=== PATIENT | female | born 1985 | race Two or more races ===

== ENCOUNTER 2024-08-20 08:50 | Emergency (ER) | payer MEDICAID, OTHER ==
[~2024-08-20] VITALS: Ht 167.6 cm; Wt 102.9 kg
[2024-08-20 09:29] VITALS: BP 131/56; PULSE 77; RESP 21; TEMP 98.9; O2SAT 98
[2024-08-20 10:08] LABS: Basophils # (auto) 0.1 10 ^3/uL (0-0.2); Basophils % (auto) 0.6 % (0.0-2.0); Eosinophils # (auto) 0 10 ^3/uL (0-0.8); Eosinophils % (auto) 0.4 % (0.0-7.0); Hematocrit 32.7 % (36.0-46.0); Hemoglobin 10.9 g/dL (12.2-16.2); Lymphocytes # (auto) 2.1 10 ^3/uL (0.4-5.4); Lymphocytes % (auto) 23.8 % (10.0-50.0); Mean Corpuscular Hemoglobin 25.6 pg (28.0-32.0); Mean Corpuscular Hgb Conc. 33.2 g/dL (32.0-36.0); Mean Corpuscular Volume 77.1 fL (80.0-100.0); Monocytes # (auto) 0.6 10 ^3/uL (0-1.3); Monocytes % (auto) 6.9 % (0.0-12.0); Neutrophils % (auto) 68.3 % (37.0-80.0); Platelet Count (auto) 280 10^3/uL (140-450); Red Blood Cells 4.24 10^6/uL (4.0-5.20); Red Cell Distribution Width 16.7 % (11.8-14.3); White Blood Cell 8.7 10^3/uL (4.4-10.8)
[2024-08-20 10:16] LABS: Chloride 106 mmol/L (98-107); Sodium 140 mmol/L (136-145)
[2024-08-20 10:17] LABS: Anion Gap 7 (5-15); Calcium 9.4 mg/dL (8.7-10.4); Carbon Dioxide 27 mmol/L (20-31)
[2024-08-20 10:18] LABS: Potassium 3.4 mmol/L (3.5-5.1)
[2024-08-20 10:23] LABS: BUN/Creatinine Ratio 14.3 (10.0-20.0); Blood Urea Nitrogen 10 mg/dL (9-23); Glucose 112 mg/dL (74-106)
[2024-08-20] MEDS ORDERED: HYD25RS PR (10:53)
[2024-08-20] MEDS ORDERED: DIBU1OIN11 RE (10:53)
--- NOTE | 2024-08-20 10:53 | ED.PDOC ---
General HPI Comments 39 year old with hx of hemorrhoids since she was 16 presents with a chief complaint of painful hemorrhoids that started three days ago. No trauma no injury. Symptoms are aggravated with sitting. 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 Family History Family History: Reviewed,noncontributory to illness Social History Smoker: Non-Smoker Alcohol: Denies ETOH Use Drugs: Denies Drug Use All Other Systems: Reviewed and Negative (Per HPI) Physical Exam General Appearance: No Apparent Distress, Normal HEENT: Normal ENT Inspection, Pharynx Normal, TMs Normal Neck: Full Range of Motion, Non-Tender, Normal, Normal Inspection Respiratory: Chest Non-Tender, Lungs Clear, No Accessory Muscle Use, No Respiratory Distress, Normal Breath Sounds Cardiovascular: No Edema, No JVD, No Murmur, No Gallop, Normal Peripheral Pulses, Regular Rate/Rhythm Breast Exam: Deferred Gastrointestinal: No Organomegaly, Non Tender, No Pulsatile Mass, Normal Bowel Sounds, Soft Genitalia: Deferred Pelvic: Deferred Rectal: Heme negative stool, Hemorrhoids, Normal rectal tone, Tenderness, Other (Miriam MALAVE in the room as a pricing coordinator) Extremities: No calf tenderness, Normal capillary refill, Normal inspection, Normal range of motion, Non-tender, No pedal edema Musculoskeletal : Apperance: Normal Neurologic: Alert, rn critical care II-XII nml as Tested, No Motor Deficits, Normal Affect, Normal Mood, No Sensory Deficits Cerebellar Function: Normal Reflexes: Normal Skin: Dry, Normal Color, Warm Lymphatic: No Adenopathy Was a procedure done? Was a procedure done?: No Differential Diagnosis Kidney stone (Female): Other X-Ray, Labs, Meds, VS Vital Signs Date Time Temp Pulse Resp B/P (MAP) Pulse Ox O2 Delivery O2 Flow Rate FiO2 08/20/24 09:29 98.9 77 21 131/56 (81) 98 98.9 08/20/24 09:29 77 21 98 Room Air 08/20/24 09:07 98.9 77 21 131/56 (81) 98 98.9 Lab Test 08/20/24 09:52 Range/Units White Blood Count 8.7 4.4-10.8 10^3/uL Red Blood Count 4.24 4.0-5.20 10^6/uL Hemoglobin 10.9 L 12.2-16.2 g/dL Hematocrit 32.7 L 36.0-46.0 % Mean Corpuscular Volume 77.1 L 80.0-100.0 fL Mean Corpuscular Hemoglobin 25.6 L 28.0-32.0 pg Mean Corpuscular Hemoglobin Concent 33.2 32.0-36.0 g/dL Red Cell Distribution Width 16.7 H 11.8-14.3 % Platelet Count 280 140-450 10^3/uL Mean Platelet Volume 7.4 6.9-10.8 fL Neutrophils (%) (Auto) 68.3 37.0-80.0 % Lymphocytes (%) (Auto) 23.8 10.0-50.0 % Monocytes (%) (Auto) 6.9 0.0-12.0 % Eosinophils (%) (Auto) 0.4 0.0-7.0 % Basophils (%) (Auto) 0.6 0.0-2.0 % Neutrophils # (Auto) 6.0 1.6-8.6 10 ^3/uL Lymphocytes # (Auto) 2.1 0.4-5.4 10 ^3/uL Monocytes # (Auto) 0.6 0-1.3 10 ^3/uL Eosinophils # (Auto) 0 0-0.8 10 ^3/uL Basophils # (Auto) 0.1 0-0.2 10 ^3/uL Nucleated Red Blood Cells 0.0 % Sodium Level 140 136-145 mmol/L Potassium Level 3.4 L 3.5-5.1 mmol/L Chloride Level 106 98-107 mmol/L Carbon Dioxide Level 27 20-31 mmol/L Anion Gap 7 5-15 Blood Urea Nitrogen 10 9-23 mg/dL Creatinine 0.70 0.550-1.02 mg/dL Glomerular Filtration Rate Calc 113 >90 mL/min BUN/Creatinine Ratio 14.3 10.0-20.0 Serum Glucose 112 H 74-106 mg/dL Calcium Level 9.4 8.7-10.4 mg/dL X-Ray, Labs, Meds, VS Comment After ROS physical examination no red flags. Findings consistent with external hemorrhoids. No signs of fistula abscess rectal bleeding or serious pathology Based on show decision-making patient will try suppositories and topical medication for pain Increase fiber in her diet. Avoid from straining. Will follow up with PCP. Patient is stable for discharge at this time. External notes reviewed. Test results and diagnostic imaging interpreted. All diagnostic findings, discharge care, education and instructions provided Follow-up with PCP in 2 to 3 days Patient verbalized understanding and agreed to treatment plan Vital signs stable, afebrile, no acute distress noted Patient ambulatory with strong steady gait Advised to return precautions for any new or worsening symptoms, return to ER immediately for re-evaluation Patient is aware that the purpose of this visit was for an acute medical emergency requiring emergent stabilization. Chronic conditions, including malignancies have not been ruled out. Patient is instructed to follow up with PCP as directed and discharge instructions for continued care and workup. If unable to arrange follow-up, patient is to return to the emergency department for reassessment. Patient (parent or legal guardian if applicable) was given verbal and written discharge instructions and acknowledges understanding. Time of 1ST Reevaluation: 10:35 Reevaluation 1ST: Improved Patient Education/Counseling: Diagnosis, Treatment Family Education/Counseling: Diagnosis, Treatment Departure 1 Departure Time of Disposition: 10:39 Impression: Primary Impression: External hemorrhoid Disposition: HOME / SELF CARE / HOMELESS Condition: Fair e-Prescriptions Dibucaine (Dibucaine) 1 % Oin 1 APPLIC RE TID for 10 Days, #30 OIN 0 Refills Prov: JOSE BRYSON NP 08/20/24 Hydrocortisone Acetate (ANUCORT-HC SUPPOSITORY) 25 Mg Lantigua 25 MG [place] BID for 5 Days, #10 SUPP 0 Refills Prov: JOSE BRYSON NP 08/20/24 Critical Care Note Critical Care Time?: No Stability Stability form required: No Heart Score Heart Score: Heart Score Response (Comments) Value History N/A 0 EKG N/A 0 Age N/A 0 Risk Factors N/A 0 Troponin N/A 0 Total 0 JOSE BRYSON NP Aug 20, 2024 10:53
== END 2024-08-20 11:23 | disposition home or self-care (01) ==
LOC: ER 08:50
DX: K64.4 Residual hemorrhoidal skin tags (principal)
CPT/HCPCS: 36415; 80048; 85025

== ENCOUNTER 2024-11-03 21:30 | Emergency (ER) | payer SELFPAY ==
[~2024-11-03] VITALS: Ht 167.6 cm; Wt 104.0 kg
[~2024-11-03 21:30] MED LIST: DIBU1OIN11 RE; HYD25RS PR
[2024-11-03 22:25] LABS: Urine Amorphous Crystal FEW /hpf (None Seen); Urine Protein, UAD 1+ (Negative)
[2024-11-03 22:34] LABS: Hematocrit 37.7 % (36.0-46.0); Hemoglobin 12.2 g/dL (12.2-16.2); Mean Corpuscular Hemoglobin 24.6 pg (28.0-32.0); Mean Corpuscular Volume 76.2 fL (80.0-100.0); Nucleated Red Blood Cells % 0.0 %
[2024-11-03 22:53] LABS: Alanine Aminotransferase 23 U/L (7-40); Anion Gap 12 (5-15); BUN/Creatinine Ratio 21.3 (10.0-20.0); Blood Urea Nitrogen 17 mg/dL (9-23); Calcium 9.3 mg/dL (8.7-10.4); Carbon Dioxide 27 mmol/L (20-31); Chloride 103 mmol/L (98-107); Lipase 26 U/L (12-53); Sodium 142 mmol/L (136-145); Total Protein 8.0 g/dL (5.7-8.2)
[2024-11-03 22:54] LABS: Albumin 5.2 g/dL (3.2-4.8); Alkaline Phosphatase 116 U/L (46-116); Bilirubin, Total 0.7 mg/dL (0.2-1.0); Glucose 121 mg/dL (74-106); Potassium 3.0 mmol/L (3.5-5.1)
--- NOTE | 2024-11-03 23:24 | ED.PDOC ---
History of Present Illness HPI Comments 39 y/o F presents with c/c of abdominal and chest wall pain, nausea, and vomiting. Patient endorses on onset of symptoms following excessive alcohol binge 2x nights ago on 11/01/24. No improvement or relief with Zofran or NyQuil medication use. No significant medical, surgical, family, or social history endorsed alongside any recent travel, injuries, sick contact, or spoiled food consumption. Patient denies any bloody or bilious vomitus, diarrhea, urinary symptoms, fever, chills, shortness of breath, or further associated symptoms. Chief Complaint: Nausea/Vomiting Time Seen by MD: 22:10 Primary Care Provider: amy Trevino Notes: Nurses Notes, Medications, Allergies Allergies: Coded Allergies: NO KNOWN ALLERGIES (Unverified , 08/20/24) Home Meds Active Scripts Potassium Chloride (POTASSIUM CHLORIDE CR) 10 Meq Tb, 1 TAB PO DAILY for 7 Days, #7 TAB 5 Refills Prov:BRENDA THAPA MD 11/03/24 Ondansetron Odt 4MG Tab (ZOFRAN PO) 4 Mg Tb, 4 MG PO QIDPRN for 3 Days, #12 TAB ODT TAB-DISSOLVE IN MOUTH, THEN SWALLOW Prov:BRENDA THAPA MD 11/03/24 Famotidine (Pepcid AC) 20 Mg Tab, 20 MG PO BID for 5 Days, #10 TAB Prov:BRENDA THAPA MD 11/03/24 Dibucaine (Dibucaine) 1 % Oin, 1 APPLIC RE TID for 10 Days, #30 OIN 0 Refills Prov:JOSE BRYSON NP 08/20/24 Hydrocortisone Acetate (ANUCORT-HC SUPPOSITORY) 25 Mg Lantigua, 25 MG [place] BID for 5 Days, #10 SUPP 0 Refills Prov:JOSE BRYSON NP 08/20/24 Information Source: Patient Mode of Arrival: Ambulatory Severity: Moderate Timing: Hours Duration: Since onset Prehospital treatment: Treatment (Zofran and NyQuil) Review of Systems: REVIEW OF SYSTEMS: No fever, no chills, or fatigue HEENT: No sore throat, no earache, no congestion, no neck pain. Cardiac: Chest wall pain. No palpitations. Lungs: No shortness of breath, no cough. GI: Abdominal pain, nausea, vomiting, no diarrhea, no constipation : No dysuria, frequency, or urgency. No hematuria. Musculoskeletal: No joint pain , no joint swelling, no extremity edema. Skin: No rash, no itching. Neuro: No headache, no dizziness, no weakness Vital Signs Vital Signs Date Time Temp Pulse Resp B/P (MAP) Pulse Ox O2 Delivery O2 Flow Rate FiO2 11/04/24 01:36 58 12 99 Room Air* 0 21 11/04/24 01:34 97.5 166/94 (118) 97.5 Physical Exam General: Awake, alert and oriented. No acute distress. Skin: Skin in warm, dry and intact. Appropriate color for ethnicity. HEENT: The head is normocephalic and atraumatic. Conjunctivae are clear without exudates or hemorrhage. Sclera is non-icteric. EOM are intact. No signs of nystagmus. Eyelids are normal in appearance without swelling or lesions. Oral mucosa is pink and moist Neck: The neck is supple with normal range of motion. No JVD. Cardiac: Heart rate and rhythm are normal. No murmurs, gallops, or rubs are auscultated. Respiratory: No signs of respiratory distress. Lung sounds are clear in all lobes bilaterally without rales, rhonchi, or wheezes. Abdominal: Epigastric and right upper quadrant tenderness. Otherwise, remaining abdomen is soft, non-tender without distention, guarding or rigidity. Bowel sounds are present and normoactive in all four quadrants. Extremities: Upper and lower extremities are atraumatic in appearance without deformity or edema. Neurological: The patient is awake, alert and oriented to person, place, and time with normal speech. Speech is clear. There is no facial asymmetry. Psychiatric: Appropriate mood and affect. Good judgement and insight. 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 Was a procedure done?: No Differential Dx Considerations may include: Differential diagnoses considered include: Abdominal aortic aneurysm, NH, esopha geal rupture, intestinal obstruction, mesenteric ischemia, perforated viscus or solid organ rupture, CHF with hepatomegaly, pneumonia, abscess, appendicitis, biliary disease, diverticulitis, gastritis, gastroenteritis, hepatitis, hernia, inflammatory bowel disease, pancreatitis, peptic ulcer disease, urinary tract infection, ureteral colic, constipation, GERD, irritable syndrome, abdominal wall pain, nonspecific abdominal pain, herpes zoster, nephrolithiasis. [ ]Also ruptured ectopic , ovarian torsion/cyst, tubo-ovarian abscess, PID, endometriosis, mittelschmerz. X-Ray, Labs, Meds, VS Vital Signs Date Time Temp Pulse Resp B/P (MAP) Pulse Ox O2 Delivery O2 Flow Rate FiO2 11/04/24 01:36 58 12 99 Room Air* 0 21 11/04/24 01:34 97.5 58 12 166/94 (118) 99 97.5 11/03/24 21:40 98.1 83 18 124/103 (110) 98 98.1 Lab Test 11/03/24 22:15 11/03/24 21:30 Range/Units White Blood Count 14.2 H 4.4-10.8 10^3/uL Red Blood Count 4.95 4.0-5.20 10^6/uL Hemoglobin 12.2 12.2-16.2 g/dL Hematocrit 37.7 36.0-46.0 % Mean Corpuscular Volume 76.2 L 80.0-100.0 fL Mean Corpuscular Hemoglobin 24.6 L 28.0-32.0 pg Mean Corpuscular Hemoglobin Concent 32.3 32.0-36.0 g/dL Red Cell Distribution Width 16.6 H 11.8-14.3 % Platelet Count 404 140-450 10^3/uL Mean Platelet Volume 7.6 6.9-10.8 fL Neutrophils (%) (Auto) 83.8 H 37.0-80.0 % Lymphocytes (%) (Auto) 11.1 10.0-50.0 % Monocytes (%) (Auto) 4.8 0.0-12.0 % Eosinophils (%) (Auto) 0.0 0.0-7.0 % Basophils (%) (Auto) 0.3 0.0-2.0 % Neutrophils # (Auto) 11.9 H 1.6-8.6 10 ^3/uL Lymphocytes # (Auto) 1.6 0.4-5.4 10 ^3/uL Monocytes # (Auto) 0.7 0-1.3 10 ^3/uL Eosinophils # (Auto) 0 0-0.8 10 ^3/uL Basophils # (Auto) 0 0-0.2 10 ^3/uL Nucleated Red Blood Cells 0.0 % Sodium Level 142 136-145 mmol/L Potassium Level 3.0 L 3.5-5.1 mmol/L Chloride Level 103 98-107 mmol/L Carbon Dioxide Level 27 20-31 mmol/L Anion Gap 12 5-15 Blood Urea Nitrogen 17 9-23 mg/dL Creatinine 0.80 0.550-1.02 mg/dL Glomerular Filtration Rate Calc 96 >90 mL/min BUN/Creatinine Ratio 21.3 H 10.0-20.0 Serum Glucose 121 H 74-106 mg/dL Lactic Acid Level 0.9 0.4-2.0 mmol/L Calcium Level 9.3 8.7-10.4 mg/dL Total Bilirubin 0.7 0.2-1.0 mg/dL Aspartate Amino Transferase (AST) 27 13-40 U/L Alanine Aminotransferase (ALT) 23 7-40 U/L Alkaline Phosphatase 116 46-116 U/L Total Protein 8.0 5.7-8.2 g/dL Albumin 5.2 H 3.2-4.8 g/dL Lipase 26 12-53 U/L Urine Color Light-orange Yellow Urine Clarity Ex.turbid Clear Urine pH 6.0 5.0-9.0 Urine Specific [place] 1.038 H 1.001-1.035 Urine Protein 1+ H Negative Urine Ketones 3+ H Negative Urine Blood Trace H Negative /uL Urine Nitrite Negative Negative Urine Bilirubin Negative Negative Urine Urobilinogen Normal Negative mg/dL Urine Leukocyte Esterase 1+ Negative /uL Urine RBC 14 0 - 4 /hpf Urine Microscopic WBC 23 H 0-5 /HPF Urine Squamous Epithelial Cells Many <5 /hpf Urine Amorphous Crystals Few None Seen /hpf Urine Bacteria Few H None Seen /hpf Urine Mucus Moderate None Seen Urine Glucose Normal Normal mg/dL Current Medications Medications (Trade) Dose Ordered Sig/Travis Route Start Time Stop Time Status Last Admin Al Hydrox/Mg Hydrox/Simethicone (Maalox Plus) 30 ml ONCE ONCE PO 11/03/24 22:15 11/03/24 22:16 DC 11/04/24 01:38 Lidocaine HCl (Xylocaine 2% Viscous) 10 ml ONCE ONCE PO 11/03/24 22:15 11/03/24 22:16 DC 11/04/24 01:38 Sodium Chloride 1,000 ml @ 1,000 mls/hr Q1H ONCE IV 11/03/24 22:15 11/03/24 23:14 DC 11/04/24 01:37 Metoclopramide HCl (Reglan Injection) 10 mg ONCE ONCE IV 11/03/24 22:15 11/03/24 22:16 DC 11/04/24 01:37 Potassium Bicarbonate (Klor-Con/Ef) 50 meq ONCE ONCE PO 11/03/24 23:30 11/03/24 23:31 DC 11/04/24 01:38 Time of 1ST Reevaluation: 22:40 Reevaluation 1ST: Unchanged Patient Education/Counseling: Treatment, Need For Follow Up Family Education/Counseling: No Family Present SEPSIS Sepsis Screen Date sepsis recognized/suspect: Nov 03, 2024 Time Sepsis recognized/suspect: 2139 Recent Procedure: No On Antibiotic Therapy: No Respiratory Rate >20: No Heart Rate >90: No Temp<36 C (96.8 F) or >38.3 C: No SBP <90 or MAP <65 mmHG: No New Acute Mental Status Change: No Is the patient on CPAP, BIPAP,: No Physician Orders Po Trial (11/03/24 ) Vital Signs Date Time Temp Pulse Resp B/P (MAP) Pulse Ox O2 Delivery O2 Flow Rate FiO2 11/04/24 01:36 58 12 99 Room Air* 0 21 11/04/24 01:34 97.5 58 12 166/94 (118) 99 97.5 11/03/24 21:40 98.1 83 18 124/103 (110) 98 98.1 Laboratory Tests Test 11/03/24 22:15 Lactic Acid Level 0.9 mmol/L (0.4-2.0) White Blood Count 14.2 10^3/uL (4.4-10.8) H Medications Medications Dose Ordered Sig/Travis Route Start Time Stop Time Status Last Admin Dose Admin Al Hydrox/Mg Hydrox/Simethicone 30 ml ONCE ONCE PO 11/03/24 22:15 11/03/24 22:16 DC 11/04/24 01:38 Lidocaine HCl 10 ml ONCE ONCE PO 11/03/24 22:15 11/03/24 22:16 DC 11/04/24 01:38 Metoclopramide HCl 10 mg ONCE ONCE IV 11/03/24 22:15 11/03/24 22:16 DC 11/04/24 01:37 Potassium Bicarbonate 50 meq ONCE ONCE PO 11/03/24 23:30 11/03/24 23:31 DC 11/04/24 01:38 Sodium Chloride 1,000 ml @ 1,000 mls/hr Q1H ONCE IV 11/03/24 22:15 11/03/24 23:14 DC 11/04/24 01:37 Departure 1 Departure Time of Disposition: 23:32 Impression: Primary Impression: Nausea and vomiting Additional Impressions: Abdominal pain Hypokalemia Disposition: HOME / SELF CARE / HOMELESS Condition: Stable Additional Instructions: ED DISCHARGE INSTRUCTIONS INSTRUCTIONS: PLEASE READ ALL INSTRUCTIONS PROVIDED IN THIS PACKET CAREFULLY. ALTHOUGH YOU HAVE BEEN DISCHARGED FROM THE EMERGENCY DEPARTMENT, THIS DOES NOT MEAN THAT YOU HAVE A "CLEAN BILL OF HEALTH". NO DEFINITIVE DIAGNOSIS FOR YOUR SYMPTOMS HAS BEEN MADE TODAY. IT IS POSSIBLE THAT YOU ARE IN THE PROCESS OF DEVELOPING A SERIOUS ILLNESS. THIS IS WHY YOU MUST RETURN TO THE ED WITHOUT FAIL IF ANY NEW OR WORSENING SYMPTOMS (ESPECIALLY IF YOUR SYMPTOMS INCLUDE CHEST PAIN, TROUBLE BREATHING, ABDOMINAL PAIN, FEVER, HEADACHE, CONFUSION, TROUBLE SEEING, OR TROUBLE WALKING) IT IS ALSO VERY IMPORTANT THAT YOU SEE A PRIMARY CARE DOCTOR WITHIN THE NEXT 1-3 DAYS TO FOLLOW UP. IF YOU ARE UNABLE TO GET AN APPOINTMENT, RETURN TO THE ED FOR RE-EVALUATION. ABDOMINAL PAIN: CARE INSTRUCTIONS OVERVIEW ABDOMINAL PAIN HAS MANY POSSIBLE CAUSES. SOME AREN'T SERIOUS AND GET BETTER ON THEIR OWN IN A FEW DAYS. OTHERS NEED MORE TESTING AND TREATMENT. IF YOUR PAIN CONTINUES OR GETS WORSE, YOU NEED TO BE RECHECKED AND MAY NEED MORE TESTS TO FIND OUT WHAT IS WRONG. YOU MAY NEED SURGERY TO CORRECT THE PROBLEM. DON'T IGNORE NEW SYMPTOMS, SUCH FEVER, NAUSEA AND VOMITING, URINATION PROBLEMS, PAIN THAT GETS WORSE, AND DIZZINESS. THESE MAY BE SIGNS OF A MORE SERIOUS PROBLEM. IF YOU ARE NOT GETTING BETTER, YOU MAY NEED MORE TESTS OR TREATMENT. THE DOCTOR HAS CHECKED YOU CAREFULLY, BUT PROBLEMS CAN DEVELOP LATER. IF YOU NOTICE ANY PROBLEMS OR NEW SYMPTOMS, GET MEDICAL TREATMENT RIGHT AWAY. FOLLOW-UP CARE IS A MANCERA PART OF YOUR TREATMENT AND SAFETY. BE SURE TO MAKE AND GO TO ALL APPOINTMENTS, AND CALL YOUR DOCTOR IF YOU ARE HAVING PROBLEMS. IT'S ALSO A GOOD IDEA TO KNOW YOUR TEST RESULTS AND KEEP A LIST OF THE MEDICINES YOU TAKE. HOW CAN YOU CARE FOR YOURSELF AT HOME? REST UNTIL YOU FEEL BETTER. TO PREVENT DEHYDRATION, DRINK PLENTY OF FLUIDS. CHOOSE WATER AND OTHER CLEAR LIQUIDS UNTIL YOU FEEL BETTER. IF YOU HAVE KIDNEY, HEART, OR LIVER DISEASE AND HAVE TO LIMIT FLUIDS, TALK WITH YOUR DOCTOR BEFORE YOU INCREASE THE AMOUNT OF FLUIDS YOU DRINK. WHEN YOU FEEL LIKE EATING, START WITH SMALL AMOUNTS. DO NOT HAVE ALCOHOL, CAFFEINE, OR SPICY, HOT, OR HIGH-FAT FOODS FOR A DAY OR TWO. AVOID ANTI-INFLAMMATORY MEDICINES SUCH ASPIRIN, IBUPROFEN (ADVIL, MOTRIN), AND NAPROXEN (ALEVE). THESE CAN CAUSE STOMACH UPSET. TALK TO YOUR DOCTOR IF YOU TAKE DAILY ASPIRIN FOR ANOTHER HEALTH PROBLEM. WHEN SHOULD YOU CALL FOR HELP? CALL 911 ANYTIME YOU THINK YOU MAY NEED EMERGENCY CARE. FOR EXAMPLE, CALL IF: YOU PASSED OUT (LOST CONSCIOUSNESS). YOU PASS [place] OR VERY BLOODY STOOLS. YOU VOMIT BLOOD OR WHAT LOOKS LIKE COFFEE GROUNDS. YOU HAVE SEVERE BELLY PAIN. CALL YOUR DOCTOR NOW OR SEEK IMMEDIATE MEDICAL CARE IF: YOUR PAIN GETS WORSE, ESPECIALLY IF IT BECOMES FOCUSED IN ONE AREA OF YOUR BELLY. YOU HAVE A NEW OR HIGHER FEVER. YOUR STOOLS ARE BLACK AND LOOK LIKE TAR, OR THEY HAVE STREAKS OF BLOOD. YOU HAVE UNEXPECTED VAGINAL BLEEDING. YOU HAVE SYMPTOMS OF A URINARY TRACT INFECTION. THESE MAY INCLUDE: PAIN WHEN YOU URINATE. URINATING MORE OFTEN THAN USUAL. BLOOD IN YOUR URINE. YOU ARE DIZZY OR LIGHTHEADED, OR YOU FEEL LIKE YOU MAY FAINT. WATCH CLOSELY FOR CHANGES IN YOUR HEALTH, AND BE SURE TO CONTACT YOUR DOCTOR IF: YOU ARE NOT GETTING BETTER EXPECTED. CREDITS FOR ABDOMINAL PAIN: CARE INSTRUCTIONS CURRENT OF: FEBRUARY 16, 2023 AUTHOR: [employer] STAFF CLINICAL REVIEW BOARD ALL [facility] EDUCATION IS REVIEWED BY A TEAM THAT INCLUDES PHYSICIANS, NURSES, ADVANCED PRACTITIONERS, REGISTERED DIETICIANS, AND OTHER HEALTHCARE PROFESSIONALS. e-Prescriptions Potassium Chloride (POTASSIUM CHLORIDE CR) 10 Meq Tb 1 TAB PO DAILY for 7 Days, #7 TAB 5 Refills Prov: BRENDA THAPA MD 11/03/24 Ondansetron Odt 4MG Tab (ZOFRAN PO) 4 Mg Tb 4 MG PO QIDPRN for 3 Days, #12 TAB ODT TAB-DISSOLVE IN MOUTH, THEN SWALLOW Prov: BRENDA THAPA MD 11/03/24 Famotidine (Pepcid AC) 20 Mg Tab 20 MG PO BID for 5 Days, #10 TAB Prov: BRENDA THAPA MD 11/03/24 Comments 39-YEAR-OLD FEMALE PRESENTED WITH ABDOMINAL PAIN, NAUSEA AND VOMITING AFTER HEA VY ALCOHOL USE. NO PERITONEAL SIGNS ON ABDOMINAL EXAM. NO EVIDENCE OF ACUTE ABDOMEN AT THIS TIME. PATIENT IS WELL APPEARING. LABS SHOW MILD LEUKOCYTOSIS AND ELEVATION OF LFTS. POTASSIUM REPLACED IN THE ED AND PATIENT DISCHARGED WITH SCRIPT FOR FURTHER POTASSIUM SUPPLEMENTATION. IMAGING ON WARRANTED AT THIS TIME. PATIENT IS AFEBRILE. PATIENT IS NOT HYPOTENSIVE. LOW SUSPICION FOR ACUTE HEPATOBILIARY DISEASE (INCLUDING ACUTE CHOLECYSTITIS, ACUTE PANCREATITIS, PUD (INCLUDING PERFORATION), ACUTE INFECTIOUS PROCESS (PNEUMONIA, HEPATITIS, PYELONEPHRITIS), ACUTE APPENDICITIS, VASCULAR CATASTROPHE, BOWEL OBSTRUCTIONS, VISCOUS PERFORATION. PRESENTATION NOT CONSISTENT WITH OTHER ACUTE, EMERGENT CAUSES OF ABDOMINAL PAIN AT THIS TIME. Extensive evaluation was performed in attempt to identify or rule out: (See differential diagnosis section) The following tests were ordered, and results were reviewed by me and discussed with patient: (See diagnostic results section) The following test were independently interpreted by me: N/A I reviewed and agreed with the following test results read by other providers: N/A I reviewed the following notes from the pt's past medical encounters: August 20, 2024 encounter for external hemorrhoid Decision regarding hospitalization or escalation of hospital level of care: Risks and benefits of admission for further treatment of patient's condition was considered however due to patient's stable condition patient will be discharged to follow up closely or return to care for worsening of condition or inability to follow up. Critical Care Note Critical Care Time?: No Stability Stability form required: No Heart Score Heart Score: Heart Score Response (Comments) Value History N/A 0 EKG N/A 0 Age N/A 0 Risk Factors N/A 0 Troponin N/A 0 Total 0 I personally scribed for BRENDA THAPA MD ([email or web address]) on 11/03/24 at 23:24. Electronically submitted by Mikhail Ring ([email or web address]). BRENDA THAPA MD Nov 03, 2024 23:24
[2024-11-03] MEDS ORDERED: FAMO-161 PO (23:33)
[2024-11-03] MEDS ORDERED: ZOFR4T PO (23:33)
[2024-11-03] MEDS ORDERED: POTA-36 PO (23:34)
[2024-11-04 01:34] VITALS: BP 166/94; TEMP 97.5
[2024-11-04 01:36] VITALS: PULSE 58; RESP 12; O2SAT 99
[2024-11-04] MEDS: METOCLOPRAMIDE HCL 5MG/ml INJ 2ml VIAL IV ONE (01:37)
[2024-11-04] MEDS: SODIUM CHLORIDE 0.9% 1,000 ML IV ONE (01:37)
[2024-11-04] MEDS: POTASSIUM EFFERVESENT TAB 25 MEQ PO ONE (01:38)
[2024-11-04] MEDS: MAALOX PLUS or MAALOX 30 ML PO ONE (01:38)
[2024-11-04] MEDS: LIDOCAINE VISCOUS 2% 15ML UD PO ONE (01:38)
== END 2024-11-04 02:48 | disposition home or self-care (01) ==
LOC: ER 21:30
DX: E87.6 Hypokalemia (principal); R07.89 Other chest pain; Z79.899 Other long term (current) drug therapy
CPT/HCPCS: 36415; 80053; 81001; 83605; 83690; 85025; 96361; 96374; 99284; J2765; J7030